=== PATIENT | female | born 1995 | race African-American/Black ===

== ENCOUNTER 2016-11-25 17:07 | Emergency (ER) | payer OTHER ==
[2016-11-25 17:18] VITALS: RESP 16
--- NOTE | 2016-11-25 17:39 | EDPHY ---
H & P Time Seen by Provider: 11/25/16 17:25 HPI/ROS: CHIEF COMPLAINT: Dog bite left leg HISTORY OF PRESENT ILLNESS: This is a 21-year-old female presenting to the emergency department s/p being bitten by a dog. Patient states [place] running [place] trail 45 minutes [place] 1 hour prior to arrival when she was close to a dog on his leash she states the dog most of got scared and he jumped and bit her on her left upper thigh. Patient states she went home but then she realized she needed needed some stitches. Patient states she is due for tetanus shot this year, no other complaints REVIEW OF SYSTEMS: Constitutional: No fever, no chills. Eyes: No discharge. ENT: No sore throat. Cardiovascular: No chest pain, no palpitations. Respiratory: No cough, no shortness of breath. Musculoskeletal: No back pain. Left upper thigh laceration Skin: No rashes. Left upper thigh abrasions Neurological: No headache. Past Medical/Surgical History: Denies past medical history Allergies to sulfa Smoking Status: Never smoked Physical Exam: General Appearance: Alert, no distress. Eyes: no pallor or injection. ENT, Mouth: Mucous membranes moist. Respiratory: Nonlabored respiratory effort Gastrointestinal: Abdomen is soft and nontender, no injuries Neurological: No focal deficits. Ambulatory without difficulty Skin: Warm and dry, no rashes. Musculoskeletal: Neck is supple nontender. Left anterior upper thigh 3 cm laceration with abrasions noted Extremities: symmetrical, full range of motion. Left anterior upper thigh 3 cm laceration with abrasions noted Psychiatric: Patient is oriented X 3, there is no agitation. Constitutional: Initial Vital Signs Temperature (C) 36.5 C 11/25/16 17:10 Heart Rate 70 11/25/16 17:10 Respiratory Rate 16 11/25/16 17:10 Blood Pressure 113/79 11/25/16 17:10 O2 Sat (%) 98 11/25/16 17:10 O2 Delivery Mode Room Air Allergies/Adverse Reactions: Sulfa (Sulfonamide Antibiotics) Allergy (Severe, Verified 11/25/16 17:15) throat swells Home Medications: Medication Instructions Recorded Amoxicillin/Clavulanate Pot 875 mg PO BID #14 tab 11/25/16 [Augmentin 875 MG TAB (*)] Medical Decision Making Procedures: Procedure: Laceration repair. Verbal consent was obtained from the patient and . 3cm laceration on the left anterior upper thigh. 5 mL 0.5% bupivacaine with epi local infiltrate. The wound was irrigated. There were no deep structures involved. The wound was repaired 5-0 Ethilon 7 sutures placed, Steri-Strips applied The procedure was performed by myself. A dressing was applied by our EMT. ED Course/Re-evaluation: Discussed the plan of care: Wound irrigation, sutures, and tetanus 1845: Wound irrigated sutures placed patient tolerated procedure well. 1855: Discussed discharge instructions with patient discharge home---> stable. Differential Diagnosis: Differential diagnosis considered but not limited to deep tendon laceration, foreign body and soft tissue infection - Data Points Medications Given: Discontinued Medications Diphtheria/Tetanus/Acell Pertussis (Boostrix) 0.5 ml IM .ONCE ONE Stop: 11/25/16 17:42 Last Admin: 11/25/16 18:02 Dose: 0.5 ml Departure - Departure Disposition: Home, Routine, Self-Care Clinical Impression: Dog bite of extremity, Abrasion Condition: Good Instructions: Animal Bite (ED), Care For Your Stitches (ED), Laceration (ED) Additional Instructions: Discussed discharge instructions 1. Keep wound clean and dry 2. Have sutures removed in 7-10 days, you can either come here or go to [facility] 3. Take all antibiotics as directed. Your also given a tetanus shot here in the ER 4. If any symptoms worsen signs of infection redness, red streaks, or pus return to the ER 5. you can take ibuprofen or Tylenol as needed for pain and inflammation Referrals: [facility] [Other] - As per Instructions [facility] [Clinic] - As per Instructions Prescriptions: Amoxicillin/Clavulanate Pot [Augmentin 875 MG TAB (*)] 875 mg PO BID #14 tab
[2016-11-25] MEDS ORDERED: TDAP ADULT 0.5 ML INJ (BOOSTRIX) IM ONE (17:41)
[2016-11-25 19:01] VITALS: BP 114/76; PULSE 80; TEMP 98.4; O2SAT 96
== END 2016-11-25 19:00 | disposition home or self-care (01) ==
PROC: 0HQJXZZ Repair Left Upper Leg Skin, External Approach (ICD-10-PCS; principal; 2016-11-25)
DX: S71.152A Open bite, left thigh, initial encounter (principal); S70.312A Abrasion, left thigh, initial encounter; Z23 Encounter for immunization; W54.0XXA Bitten by dog, initial encounter; Y99.8 Other external cause status; Y93.02 Activity, running